=== PATIENT | female | born 1990 | race Two or more races ===

== ENCOUNTER 2016-08-24 17:39 | Emergency (ER) | payer OTHER ==
--- NOTE | 2016-08-24 19:25 | EDPHY ---
H & P Stated Complaint: Painful to urinate for 1 week. Time Seen by Provider: 08/24/16 18:34 HPI/ROS: CHIEF COMPLAINT: Vaginal discharge. HISTORY OF PRESENT ILLNESS: The patient is a 26 year old female presenting with vaginal discharge. The patient developed vaginal itching 1 week ago. She states the itching improved briefly, but then returned yesterday with associated vaginal discharge. The vaginal discharge is white. The patient states the irritation feels similar to a previous yeast infection s/p antibiotic use. She denies recent antibiotic use. She reports no new sexual partners, but does report unprotected sex recently. No sores. No bloody discharge. REVIEW OF SYSTEMS: Aside from elements discussed in the HPI, a comprehensive 10-point review of systems was reviewed and is negative. PAST MEDICAL HISTORY: Denies. SOCIAL HISTORY: First language is Uzbek. VITAL SIGNS: Reviewed by me GENERAL: Well-developed, well-nourished, resting comfortably in no respiratory distress. HEENT: Benign. LUNGS: Clear to auscultation bilaterally. CARDIAC: Regular rate and rhythm. ABDOMEN: Soft, nontender. PELVIC: Normal external genitailia. Vagina: Significant amount of thick, white , greenish discharge. Irritation at the introitus. BACK: No CVA tenderness. EXTREMITIES: No trauma. No edema. Range of motion is normal throughout. NEURO: Alert and oriented, grossly nonfocal. SKIN: Warm and dry, no rash. PSYCHIATRIC: Normal mentation, no agitation. Portions of this note were transcribed by a spanish medical interpreter. I personally performed a history, physical exam, medical decision making, and confirmed accuracy of information the transcribed note. Source: Patient - Personal History LMP (Females 10-55): 22-28 Days Ago Current Tetanus Diphtheria and Acellular Pertussis (TDAP): Unsure - Medical/Surgical History Hx Asthma: No Hx Chronic Respiratory Disease: No Hx Diabetes: No Hx Cardiac Disease: No Hx Renal Disease: No Hx Cirrhosis: No Hx Alcoholism: No Hx HIV/AIDS: No Hx Splenectomy or Spleen Trauma: No Other PMH: Pnuemothorax 2015. Tonsilectomy 2016. - Social History Smoking Status: Never smoked Constitutional: Initial Vital Signs Heart Rate 91 08/24/16 17:47 Respiratory Rate 16 08/24/16 17:47 Blood Pressure 121/80 H 08/24/16 17:47 O2 Sat (%) 98 08/24/16 17:47 O2 Delivery Mode Room Air Allergies/Adverse Reactions: No Known Allergies Allergy (Unverified 08/24/16 17:50) Home Medications: Medication Instructions Recorded Fluconazole [Diflucan (*)] 150 mg PO ONCE #0 tab 08/24/16 metroNIDAZOLE [Flagyl 500 mg (*)] 500 mg PO BID 7 Days 08/24/16 Medical Decision Making ED Course/Re-evaluation: Urine obtained, GC Chlamydia ordered. A pelvic exam was performed. Cultures sent for yeast and bacterial vaginosis. Wet prep reveals clue cells. Vaginal culture/ DNA probes not resulted at time of dc. Will place on flagyl for presumed BV and also provide diflucan to use when flagyl finished as treatment for potential yeast infection, preventative treatment. Do not believe patient has UTI. DCd in improved condition. Differential Diagnosis: Diff dx considered included yeast infection, BV, local irritation, urethritis, GC, chlamydia, PID - Data Points Microbiology Results: MICROBIOLOGY 08/24/16 20:55 Vaginal - Swab Gram Stain - Final 08/24/16 20:55 Vaginal - Swab Vaginal Culture - Preliminary Strep Agalactiae Group B Departure - Departure Disposition: Home, Routine, Self-Care Clinical Impression: Bacterial vaginosis, Yeast infection Condition: Good Instructions: Bacterial Vaginosis (ED), Vulvovaginal Candidiasis (ED) Additional Instructions: Take full course of Flagyl as directed. Do not drink alcohol while taking this medication. After taking this antibiotic, you have been given a prescription for fluconazole. This will treat any Yeast infection which may develop after being on antibiotics. Call the hospital in 36 hours to receive your GC, Chlamydia. You have been referred to an Legal Instruments Examiner. If you continue to have symptoms please call the physician to schedule a followup appointment. 1. [place] todo el tratamiento de Flagyl uriel se le indico. No kesha alcohol mientras ajay lio medicamento. 2. Despues de shreya lio antibiotico, se le bradshaw recetado medicina para fluconal. [place] tratara lebron hongo que puede desarrollarse despues de empezar el antibiotico. 3. Llame al hospital en 36 horas para recibir lebron GC, Chlamydia. 4. Se le recomienda consultar un obstetra/ginecologo. Si continua con los sintomas, por favor llame a lebron medico para hacer jane ross de seguimiento. Referrals: Marnie Rodriguez MD [Medical Doctor] - As per Instructions Prescriptions: Fluconazole [Diflucan (*)] 150 mg PO ONCE #0 tab metroNIDAZOLE [Flagyl 500 mg (*)] 500 mg PO BID 7 Days Print Language: Uzbek
[2016-08-24 20:17] LABS: COLOR PALE YELLOW; LEUKOCYTE ESTERASE,URINE 3+ (NEGATIVE); NITRITE,URINE NEGATIVE (NEGATIVE)
[2016-08-24 20:19] LABS: BACTERIA TRACE /hpf (NONE SEEN)
[2016-08-24 20:32] VITALS: BP 120/77; PULSE 104; RESP 17; O2SAT 97
[2016-08-25 12:19] LABS: CHLAMYDIA AMPLIFICATION GENPRB NEGATIVE (NEGATIVE)
== END 2016-08-24 22:14 | disposition home or self-care (01) ==
LOC: EEVIPCON 17:39
DX: N76.0 Acute vaginitis (principal); B37.9 Candidiasis, unspecified